=== PATIENT | female | born 1975 | race Caucasian/White ===

== ENCOUNTER → 2019-10-27 10:44 | Outpatient (CLI) | payer MEDICARE, SELFPAY ==
--- NOTE | 2019-10-27 10:45 | MM_ITS ---
PROCEDURE: MM DIG SCREENING MAMM BI W/CAD Digital Breast Tomosynthesis Included CLINICAL INDICATION: screening COMPARISON: MG DIG MAMMO BILAT SCREENING from 11/22/2014 MG DIG MAMMO BILAT SCREENING from 11/22/2014 MG DIG MAMMO BILAT SCREENING from 11/22/2014 TECHNIQUE: Standard CC and MLO images and 3D Tomosynthesis was obtained. R2 CAD reviewed. FINDINGS: This report is delayed waiting on outside exam for comparison. Outside studies have been made available dating 11/22/2014 There is dense fibroglandular tissue which decreases sensitivity of mammography. Scattered benign-appearing calcifications are present. IMPRESSION: BI-RAD Category: 1 Negative FOLLOW-UP: 1YR 1 Year Follow-up (A letter has been sent to the patient regarding results of the study.) Dictated by: Bruce Smith MD 11/11/2019 11:22 Bruce Smith MD in [place] 11/11/2019 11:22
== END ==
PROVIDERS: PCP Family Medicine; Visit Provider Family Medicine
DX: Z12.31 Encounter for screening mammogram for malignant neoplasm of breast (principal)
CPT/HCPCS: 77063; 77067

== ENCOUNTER → 2019-11-30 07:23 | Outpatient (CLI) | payer OTHER, SELFPAY ==
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
== END ==
PROVIDERS: PCP Family Medicine; Visit Provider Family Medicine
DX: M54.5 Low back pain (principal)
CPT/HCPCS: 72148; 76376

== ENCOUNTER → 2019-12-01 12:40 | Outpatient (POV) | payer OTHER, MEDICARE, SELFPAY ==
[2019-12-01 13:13] VITALS: BP 156/92; PULSE 93; RESP 18; O2SAT 98; BMI 38.2
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
== END ==
PROVIDERS: PCP Family Medicine; Visit Provider Clinical Nurse Specialist Family Health
DX: S32.000A Wedge compression fracture of unspecified lumbar vertebra, initial encounter for closed fracture (principal)
CPT/HCPCS: 99202

== ENCOUNTER → 2020-01-16 08:43 | Outpatient (POV) | payer OTHER, MEDICARE, SELFPAY ==
[2020-01-16 09:01] VITALS: BP 125/77; PULSE 74; RESP 18; O2SAT 98; BMI 38.2
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
== END ==
PROVIDERS: PCP Family Medicine; Visit Provider Clinical Nurse Specialist Family Health
DX: M51.36 Other intervertebral disc degeneration, lumbar region (principal); S32.000A Wedge compression fracture of unspecified lumbar vertebra, initial encounter for closed fracture
CPT/HCPCS: 99212

== ENCOUNTER 2020-06-04 14:37 | Outpatient (CLI) | payer MEDICARE, SELFPAY ==
[2020-06-04 14:53] VITALS: BMI 36.5
[2020-06-04 15:02] VITALS: BP 125/81; PULSE 102; RESP 18; TEMP 37; O2SAT 100
[2020-06-04 15:08] LABS: Basophils % 0.2 % (0.1-2.0); Eosinophils # 0.2 K/mm3 (0.0-0.4); Eosinophils % 1.1 % (0.1-12.0); Hemoglobin 9.5 g/dL (12.2-16.2); Lymphocytes # 1.6 K/mm3 (0.7-4.5); Mean Corpuscular HGB Conc 31.8 g/dL (31.8-35.4); Mean Corpuscular Hemoglobin 33.5 pg (27.0-31.2); Mean Corpuscular Volume 105.4 fl (81-99); Monocytes # 0.5 K/mm3 (0.1-1.0); Monocytes % 3.3 % (1.7-9.3); Neutrophils # 13.7 K/mm3 (1.8-7.8); Neutrophils % 85.4 % (37.0-80.0); Platelet Count 464 K/mm3 (142-424); Red Blood Count 2.84 M/mm3 (4.20-5.40); Red Cell Distribution Width 17.6 % (11.5-17.5)
[2020-06-04 15:09] LABS: MANUAL DIFFERENTIAL MANUAL DIFFERENTIAL (MANUAL DIFF)
[2020-06-04 15:22] LABS: Chloride 106 mmol/L (98-107); Potassium 3.3 mmoL/L (3.5-5.1); Sodium 139 mmol/L (136-145)
[2020-06-04 15:25] LABS: Alanine Aminotransferase 147 U/L (12-78); Albumin Level 3.2 g/dl (3.5-5.0); Albumin/Globulin Ratio 0.8 (1.1-1.8); Alkaline Phosphatase 560 U/L (38-126); Anion Gap 16.3 mEq/L (5-15); Aspartate Amino Transferase 148 U/L (14-36); Bilirubin,Total 0.5 mg/dl (0.2-1.3); Blood Urea Nitrogen 17 mg/dl (7-17); Calcium 9.3 mg/dl (8.4-10.2); Carbon Dioxide 20 mmol/L (22.0-30.0); Creatinine Clearance Estimated 104 mL/min (50-200); Eosinophils % 1 % (0-3); Estimated Glomerular Filt Rate 60 ml/min (>60); GFR (African American) 72 ML/MIN (>60); Globulin 4.2 g/dL (1.3-3.2); Glucose 114 mg/dl (74-100); Lymphocytes % 6 % (10-50); Macrocytosis 1+; Monocytes % 3 % (2-9); Neutrophils % 89 % (42-76); Platelet Estimate Normal; Total Cells Counted 100; Total Protein,Serum 7.4 g/dl (6.3-8.2)
[2020-06-04 15:26] LABS: Hypochromasia 1+
[2020-06-04 17:09] VITALS: BP 127/89; PULSE 100; RESP 18
--- NOTE | 2020-06-04 17:59 | PC.NURSE ---
pt wanted to wait around and try to walk so that she could give a urine sample. pt was informed that md stated it was ok to discharge home without providing one. pt assisted out at this time per gatito mccabe rn to car via rolling walker.
== END 2020-06-04 17:59 | disposition home or self-care (01) ==
LOC: INF 14:40
PROVIDERS: PCP Family Medicine; Visit Provider Family Medicine
DX: C23 Malignant neoplasm of gallbladder (principal)
CPT/HCPCS: 80053; 85007; 85025; 96360; 96361; J1642; J2405